=== PATIENT | female | born 1950 | race Caucasian/White ===

== ENCOUNTER 2018-03-11 10:33 | Day surgery (SDC) | payer BC, OTHER ==
[2018-03-11 11:04] VITALS: BMI 44.4
[2018-03-11] MEDS ORDERED: PROPOFOL 20 ML ONE ×3 (11:36)
[2018-03-11] MEDS ORDERED: LIDOCAINE HCL/PF 2% SDV 5ML VIAL ONE (11:37)
[2018-03-11 12:44] VITALS: BP 123/70; PULSE 72; TEMP 98.2
--- NOTE | 2018-03-13 19:50 | PATH ---
Surgical Pathology Report Patient Name: STONE AMOR [facility]. Rec. #: [id number] /Age/Gender: 1950 (Age: 67) / F Account: [id number] Location: [facility] Taken: 03/11/2018 Received: 03/11/2018 Reported: 03/13/2018 Physicians: Kristan Lee M.D. Specimen(s) Received A: BX DUODENUM B: BX ANTRUM C: BX BODY D: BX GE JUNCTION Clinical History Vomiting Postoperative diagnosis: Surgical anatomy, gastritis Final Diagnosis A. DUODENUM, BIOPSY: SMALL BOWEL MUCOSA WITHOUT SIGNIFICANT PATHOLOGIC FINDINGS. B. STOMACH, ANTRUM, BIOPSY: GASTRIC ANTRAL MUCOSA WITH MILD CHRONIC GASTRITIS. IMMUNOHISTOCHEMICAL STAIN FOR H. PYLORI IS NEGATIVE. C. GASTRIC BODY, BIOPSY: GASTRIC BODY MUCOSA WITH MILD CHRONIC GASTRITIS. IMMUNOHISTOCHEMICAL STAIN FOR H. PYLORI IS NEGATIVE. D. GE JUNCTION, BIOPSY: SQUAMOCOLUMNAR MUCOSA WITH MILD CHRONIC INFLAMMATION AND CHANGES OF MODERATE REFLUX ESOPHAGITIS. NO INTESTINAL METAPLASIA OR DYSPLASIA IDENTIFIED. Electronically Signed Kristan Keating M.D. Gross Description A. Received in formalin, labeled "biopsy duodenum" are 2 gates, irregular portions of soft tissue measuring 0.3 and 0.5 cm. in greatest dimension. The specimens are submitted in toto in one cassette. B. Received in formalin, labeled "biopsy antrum" is a gates, irregular portion of soft tissue measuring 0.4 cm. in greatest dimension. The specimen is submitted in toto in one cassette. C. Received in formalin, labeled "biopsy gastric body" is a gates, irregular portion of soft tissue measuring 0.5 cm. in greatest dimension. The specimen is submitted in toto in one cassette. D. Received in formalin, labeled "biopsy GE junction" is a gates, irregular portion of soft tissue measuring 0.3 cm. in greatest dimension. The specimen is submitted in toto in one cassette. 03/12/201803/12/2018
== END 2018-03-11 12:44 | disposition home or self-care (01) ==
LOC: FASU-ENDO 10:33
PROVIDERS: ATTEND Internal Medicine Gastroenterology
PROC: 0DB68ZX Excision of Stomach, Via Natural or Artificial Opening Endoscopic, Diagnostic (ICD-10-PCS; 2018-03-11)
PROC: 0DB38ZX Excision of Lower Esophagus, Via Natural or Artificial Opening Endoscopic, Diagnostic (ICD-10-PCS; 2018-03-11)
PROC: 0DB98ZX Excision of Duodenum, Via Natural or Artificial Opening Endoscopic, Diagnostic (ICD-10-PCS; principal; 2018-03-11 11:00)
DX: K29.50 Unspecified chronic gastritis without bleeding (principal); K21.0 Gastro-esophageal reflux disease with esophagitis; E03.9 Hypothyroidism, unspecified; E11.9 Type 2 diabetes mellitus without complications; E78.00 Pure hypercholesterolemia, unspecified; Z98.84 Bariatric surgery status
CPT/HCPCS: 82962; 88305-TC; 88342-TC

== ENCOUNTER 2018-06-03 09:50 | Day surgery (SDC) | payer BC ==
[2018-05-27 10:14] VITALS: BMI 44.4
[2018-06-03 10:30] VITALS: BP 132/92; PULSE 94; TEMP 98.3
[2018-06-03] MEDS ORDERED: PROPOFOL 20 ML ONE ×2 (10:47)
== END 2018-06-03 11:20 | disposition home or self-care (01) ==
LOC: FASU-ENDO 09:50
PROVIDERS: ATTEND Internal Medicine Gastroenterology
PROC: 0DJD8ZZ Inspection of Lower Intestinal Tract, Via Natural or Artificial Opening Endoscopic (ICD-10-PCS; principal; 2018-06-03 11:07)
DX: Z12.11 Encounter for screening for malignant neoplasm of colon (principal); K64.0 First degree hemorrhoids
CPT/HCPCS: 82962

== ENCOUNTER 2018-07-29 09:14 | Day surgery (SDC) | payer BC, OTHER ==
[2018-07-27 15:00] VITALS: BMI 37.9
[2018-07-29 12:01] VITALS: PULSE 81
[2018-07-29 12:31] VITALS: BP 110/62; TEMP 98
--- NOTE | 2018-08-04 13:05 | PATH ---
Surgical Pathology Report Patient Name: STONE AMOR [facility]. Rec. #: [id number] /Age/Gender: 1950 (Age: 67) / F Account: [id number] Location: [facility] Taken: 07/29/2018 Received: 07/29/2018 Reported: 07/31/2018 Physicians: Kristan Lee M.D. Specimen(s) Received A: RANDOM BX ASCENDING COLON B: RANDOM BX TRANSVERSE COLON C: RANDOM BX DESCENDING COLON Clinical History Screening/poor prep Hemorrhoids Final Diagnosis A. RANDOM ASCENDING COLON BIOPSY: COLONIC MUCOSA WITH ACUTE INFLAMMATION, ACUTE CRYPTITIS, INCREASED CHRONIC INFLAMMATORY INFILTRATE, AND REACTIVE LYMPHOID AGGREGATE IN THE LAMINA PROPRIA. B. RANDOM TRANSVERSE COLON BIOPSY: COLONIC MUCOSA WITH ACUTE INFLAMMATION, ACUTE CRYPTITIS, AND INCREASED CHRONIC INFLAMMATORY INFILTRATE IN THE LAMINA PROPRIA. C. RANDOM DESCENDING COLON BIOPSY: COLONIC MUCOSA WITH ACUTE INFLAMMATION, ACUTE CRYPTITIS, CRYTP ABSCESS, AND INCREASED CHRONIC INFLAMMATORY INFILTRATE IN THE LAMINA PROPRIA. Comment: No granulomatous inflammation present. No crypt architectural distortion identified. The differential diagnoses include acute self limited colitis, infectious colitis, and inflammatory bowel disease. Clinical correlation is recommended. Electronically Signed Dhaval Reynolds M.D. Gross Description A. Received in formalin, labeled "random biopsy, ascending colon" as one piece of light gates, tissue measuring 0.3 cm in greatest dimension. Entirely submitted in one cassette. B. received in formalin, labeled, "random biopsy, transverse colon" is one piece of light gates, tissue, measuring 0.3 cm in greatest dimension. Entirely submitted in one cassette. C. received in formalin, labeled "random biopsy descending colon" is one piece of light gates, tissue, measuring 0.4 cm in greatest dimension. Entirely submitted in one cassette. AE/07/29/2018 ebram/07/29/2018
== END 2018-07-29 12:32 | disposition home or self-care (01) ==
LOC: FASU-ENDO 09:14
PROVIDERS: ATTEND Internal Medicine Gastroenterology
PROC: 0DBL8ZX Excision of Transverse Colon, Via Natural or Artificial Opening Endoscopic, Diagnostic (ICD-10-PCS; 2018-07-29)
PROC: 0DBM8ZX Excision of Descending Colon, Via Natural or Artificial Opening Endoscopic, Diagnostic (ICD-10-PCS; 2018-07-29)
PROC: 0DBK8ZX Excision of Ascending Colon, Via Natural or Artificial Opening Endoscopic, Diagnostic (ICD-10-PCS; principal; 2018-07-29 11:15)
DX: Z12.11 Encounter for screening for malignant neoplasm of colon (principal); K62.89 Other specified diseases of anus and rectum; R10.9 Unspecified abdominal pain; K64.8 Other hemorrhoids
CPT/HCPCS: 82962; 88305-TC

== ENCOUNTER 2020-12-13 21:25 | Emergency (ER) | payer BC ==
[2020-12-13 22:00] VITALS: BP 107/70; PULSE 87; TEMP 97.7; BMI 38.9
[2020-12-13] MEDS ORDERED: SODIUM CHLORIDE 0.9% 500 ML INFUS.BAG IV ONE (22:31)
[2020-12-13] MEDS ORDERED: METOCLOPRAMIDE HCL INJECTION 10 MG/2 ML VIAL IVPB ONE (22:31)
[2020-12-13] MEDS ORDERED: ACETAMINOPHEN 1000 MG/100 ML VIAL (NON FORMULARY) IVPB ONE (22:31)
[2020-12-13] MEDS ORDERED: METOCLOPRAMIDE HCL INJECTION 10 MG/2 ML VIAL ONE (22:40)
[2020-12-13] MEDS ORDERED: ACETAMINOPHEN INJECTION 100 ML IVPB ONE (22:41)
[2020-12-13 23:14] LABS: BASO % 1.3 % (0-2.0); EOS % 3.3 % (0-4.5); HEMATOCRIT 34.7 % (32.4-45.2); HEMOGLOBIN 11.6 GM/dL (10.7-15.3); LYMPH % 27.3 % (8-40); MCH 28.3 pg (25.7-33.7); MCHC 33.3 g/dl (32.0-36.0); MEAN CELL VOLUME 84.9 fl (80-96); MEAN PLT VOLUME 9.2 fl (7.5-11.1); MONO % 10.3 % (3.8-10.2); NEUT % 57.8 % (42.8-82.8); PLATELET COUNT 238 10^3/uL (134-434); RBC 4.09 M/mm3 (3.60-5.2); RDW 15.9 % (11.6-15.6); WHITE BLOOD COUNT 5.5 K/mm3 (4.0-10.0)
[2020-12-13 23:20] LABS: INR 1.06 (0.83-1.09); PROTHROMBIN TIME (PATIENT) 13.1 SEC (9.7-13.0)
[2020-12-13 23:23] LABS: ACTIVATED PTT 29.6 SECONDS (25.2-36.5)
[2020-12-13 23:32] LABS: CHLORIDE 108 mmol/L (98-107); SODIUM 139 mmol/L (136-145)
[2020-12-13 23:34] LABS: CALCIUM 8.8 mg/dL (8.5-10.1)
[2020-12-13 23:35] LABS: ALBUMIN 3.2 g/dl (3.4-5.0); ANION GAP 4 MMOL/L (8-16); BLOOD UREA NITROGEN 11.1 mg/dL (7-18); CO2 28 mmol/L (21-32); GLUCOSE,RANDOM 122 mg/dL (74-106); LIPASE 40 U/L (73-393); MAGNESIUM 2.4 mg/dL (1.8-2.4)
[2020-12-13 23:37] LABS: SGPT/ALT 31 U/L (13-61)
[2020-12-13 23:38] LABS: CREATININE 0.8 mg/dL (0.55-1.3); SGOT/AST 33 U/L (15-37)
[2020-12-13 23:39] LABS: BILIRUBIN,TOTAL 0.5 mg/dL (0.2-1); TOT PROT 6.7 g/dl (6.4-8.2)
[2020-12-13 23:40] LABS: ALK PHOS 95 U/L (45-117)
[2020-12-14] MEDS ORDERED: MAGNESIUM CITRATE 300 ML BOTTLE PO ONE (01:10)
[2020-12-14] MEDS ORDERED: MINERAL OIL ENEMA 133 ML ENEMA PR ONE (01:12)
[2020-12-14 01:54] LABS: PH,URINE 5.5 (5.0-8.0); URINE APPEARANCE CLEAR; URINE BILIRUBIN NEGATIVE (NEGATIVE); URINE COLOR ORANGE; URINE GLUCOSE (UA) NEGATIVE (NEGATIVE); URINE KETONE NEGATIVE (NEGATIVE); URINE LEUK ESTERASE NEGATIVE (NEGATIVE); URINE NITRITE NEGATIVE (NEGATIVE); URINE PROTEIN NEGATIVE (NEGATIVE); URINE UROBILINOGEN 0.2 mg/dL (0.2-1.0)
[2020-12-14] MEDS ORDERED: KETOROLAC TROMETHAMINE 30 MG/1 ML VIAL ONE (02:59)
[2020-12-14] MEDS ORDERED: KETOROLAC TROMETHAMINE 30 MG/1 ML VIAL IM ONE (02:59)
== END 2020-12-14 04:06 | disposition home or self-care (01) ==
LOC: JER 21:25
PROC: 3E0333Z Introduction of Anti-inflammatory into Peripheral Vein, Percutaneous Approach (ICD-10-PCS; principal; 2020-12-13)
PROC: 3E0233Z Introduction of Anti-inflammatory into Muscle, Percutaneous Approach (ICD-10-PCS; 2020-12-13)
PROC: 3E033GC Introduction of Other Therapeutic Substance into Peripheral Vein, Percutaneous Approach (ICD-10-PCS; 2020-12-13)
DX: K59.00 Constipation, unspecified (principal)
CPT/HCPCS: 36415; 71045-TC-FY; 74177-TC; 80053; 81003; 82550; 83605; 83690; 83735; 84439; 84443; 84481; 84484; 85025; 85610; 85730; 87086; 93005; 93010; 99285-25; J0131

== ENCOUNTER 2020-12-23 03:41 | Emergency (ER) | payer BC ==
[2020-12-23 04:04] VITALS: BP 115/57; PULSE 77; TEMP 98.7; BMI 35.4
[2020-12-23] MEDS ORDERED: ONDANSETRON 4 MG TABLET PO ONE (04:21)
[2020-12-23] MEDS ORDERED: ONDANSETRON *ODT* 4 MG TABLET ONE (04:24)
== END 2020-12-23 05:10 | disposition home or self-care (01) ==
LOC: JER 03:41
DX: B02.9 Zoster without complications (principal)
CPT/HCPCS: 99283-25

== ENCOUNTER 2021-06-10 12:06 | Emergency (ER) | payer BC ==
[2021-06-10 12:16] VITALS: TEMP 98; BMI 38.0
[2021-06-10] MEDS ORDERED: FAMOTIDINE 20 MG/50 ML IVPB 20 MG/50 ML MG IVPB ONE ×2 (13:00→13:12)
[2021-06-10] MEDS ORDERED: SODIUM CHLORIDE 500 ML IV STA (13:00)
[2021-06-10 13:36] LABS: BASO % 0.9 % (0-2.0); EOS % 2.3 % (0-4.5); HEMATOCRIT 36.6 % (32.4-45.2); LYMPH % 19.5 % (8-40); MCH 27.9 pg (25.7-33.7); MCHC 32.7 g/dl (32.0-36.0); MEAN CELL VOLUME 85.2 fl (80-96); MEAN PLT VOLUME 8.1 fl (7.5-11.1); MONO % 7.4 % (3.8-10.2); NEUT % 69.9 % (42.8-82.8); PLATELET COUNT 304 10^3/uL (134-434); RBC 4.29 M/mm3 (3.60-5.2); RDW 17.8 % (11.6-15.6); WHITE BLOOD COUNT 6.6 K/mm3 (4.0-10.0)
[2021-06-10 13:58] LABS: CALCIUM 10.2 mg/dL (8.5-10.1)
[2021-06-10 13:59] LABS: BLOOD UREA NITROGEN 16.1 mg/dL (7-18)
[2021-06-10 14:04] LABS: BILIRUBIN,TOTAL 0.2 mg/dL (0.2-1); TOT PROT 7.6 g/dl (6.4-8.2)
[2021-06-10] MEDS ORDERED: SODIUM CHLORIDE 0.9% 500 ML INFUS.BAG IV ONE (14:25)
[2021-06-10] MEDS ORDERED: POLYETHYLENE GLYCOL (HEALTHYLAX) 3350 17 GM PACKET PO ONE (16:10)
[2021-06-10] MEDS ORDERED: POLYETHYLENE GLYCOL (HEALTHYLAX) 3350 17 GM PACKET ONE (16:16)
[2021-06-10 16:39] LABS: PH,URINE 8.5 (5.0-8.0); URINE APPEARANCE CLEAR; URINE BILIRUBIN NEGATIVE (NEGATIVE); URINE COLOR YELLOW; URINE GLUCOSE (UA) NEGATIVE (NEGATIVE); URINE KETONE NEGATIVE (NEGATIVE); URINE LEUK ESTERASE NEGATIVE (NEGATIVE); URINE NITRITE NEGATIVE (NEGATIVE); URINE PROTEIN NEGATIVE (NEGATIVE); URINE UROBILINOGEN 0.2 mg/dL (0.2-1.0)
[2021-06-10 17:35] LABS: LACTIC ACID 2.3 mmol/L (0.4-2.0)
[2021-06-10] MEDS ORDERED: SODIUM CHLORIDE 1,000 ML IV STA (17:57)
[2021-06-10 20:21] VITALS: BP 122/64; PULSE 94
== END 2021-06-10 20:22 | disposition home or self-care (01) ==
LOC: JER 12:06
PROC: 3E033GC Introduction of Other Therapeutic Substance into Peripheral Vein, Percutaneous Approach (ICD-10-PCS; principal; 2021-06-10)
PROC: 3E0337Z Introduction of Electrolytic and Water Balance Substance into Peripheral Vein, Percutaneous Approach (ICD-10-PCS; 2021-06-10)
PROC: 3E0337Z Introduction of Electrolytic and Water Balance Substance into Peripheral Vein, Percutaneous Approach (ICD-10-PCS; 2021-06-10)
PROC: 3E0337Z Introduction of Electrolytic and Water Balance Substance into Peripheral Vein, Percutaneous Approach (ICD-10-PCS; 2021-06-10)
DX: K27.9 Peptic ulcer, site unspecified, unspecified as acute or chronic, without hemorrhage or perforation (principal); K29.50 Unspecified chronic gastritis without bleeding
CPT/HCPCS: 36415; 74177-TC; 80053; 81003; 82962; 83605; 83690; 84439; 84443; 84481; 85025; 87086; 99285-25; Q9967

== ENCOUNTER 2021-08-29 11:12 | Day surgery (SDC) | payer BC ==
[2021-08-29 11:36] VITALS: BMI 38.9
[2021-08-29 12:59] VITALS: TEMP 97.4
[2021-08-29 13:12] VITALS: BP 108/64; PULSE 83
== END 2021-08-29 13:15 | disposition home or self-care (01) ==
LOC: FASU-ENDO 11:12
PROVIDERS: ATTEND Internal Medicine Gastroenterology
PROC: 0DB68ZX Excision of Stomach, Via Natural or Artificial Opening Endoscopic, Diagnostic (ICD-10-PCS; 2021-08-29)
PROC: 0DB48ZX Excision of Esophagogastric Junction, Via Natural or Artificial Opening Endoscopic, Diagnostic (ICD-10-PCS; 2021-08-29)
PROC: 0DB98ZX Excision of Duodenum, Via Natural or Artificial Opening Endoscopic, Diagnostic (ICD-10-PCS; principal; 2021-08-29 12:14)
DX: K29.50 Unspecified chronic gastritis without bleeding (principal); K21.00 Gastro-esophageal reflux disease with esophagitis, without bleeding; R12 Heartburn
CPT/HCPCS: 82962

== ENCOUNTER 2023-03-30 15:06 | Emergency (ER) | payer BC, OTHER ==
[2023-03-30 15:19] VITALS: BP 129/66; PULSE 87; RESP 18; TEMP 97.6; BMI 38.0
[2023-03-30] MEDS ORDERED: TETANUS AND DIPHTHERIA TOXOID 0.5 ML DISP.SYRIN IM ONE (16:08)
[2023-03-30] MEDS ORDERED: CEPHALEXIN 250 MG/5 ML ORAL SUSPENSION PO ONE (16:08)
[2023-03-30] MEDS ORDERED: DIPHTH,PERTUSS(ACELL),TET 0.5 ML DISP.SYRIN IM ONE (16:13)
[2023-03-30] MEDS ORDERED: CEPHALEXIN MONOHYDRATE 500 MG CAPSULE (UD) ONE (16:13)
== END 2023-03-30 16:32 | disposition home or self-care (01) ==
LOC: JERFT 15:06
PROC: 0HQGXZZ Repair Left Hand Skin, External Approach (ICD-10-PCS; principal; 2023-03-30)
PROC: 3E0234Z Introduction of Serum, Toxoid and Vaccine into Muscle, Percutaneous Approach (ICD-10-PCS; 2023-03-30)
DX: S61.211A Laceration without foreign body of left index finger without damage to nail, initial encounter (principal); W26.8XXA Contact with other sharp object(s), not elsewhere classified, initial encounter
CPT/HCPCS: 99283-25

== ENCOUNTER 2023-07-03 11:46 | Emergency (ER) | payer OTHER ==
[2023-07-03 11:53] VITALS: BP 144/59; PULSE 81; RESP 18; TEMP 97.5; BMI 35.4
== END 2023-07-03 13:31 | disposition home or self-care (01) ==
LOC: JERFT 11:46
DX: J40 Bronchitis, not specified as acute or chronic (principal); R05.9 Cough, unspecified; R09.81 Nasal congestion; R11.10 Vomiting, unspecified; M79.10 Myalgia, unspecified site; R68.83 Chills (without fever); Z20.822 Contact with and (suspected) exposure to COVID-19
CPT/HCPCS: 0241U-QW; 71046-TC-FY; 93005; 93010; 99285-25

== ENCOUNTER 2024-01-06 16:10 | Emergency (ER) | payer OTHER ==
[2024-01-06 16:28] VITALS: BP 142/88; PULSE 75; RESP 16; TEMP 97.6; BMI 35.0
[2024-01-06] MEDS ORDERED: ACETAMINOPHEN 325 MG TABLET (FP) ONE (17:36)
[2024-01-06] MEDS ORDERED: DIPHTH,PERTUSS(ACELL),TET 0.5 ML DISP.SYRIN IM ONE (17:42)
[2024-01-06] MEDS: ACETAMINOPHEN 325 MG TABLET (FP) PO ONE (17:42)
[2024-01-06] MEDS: DIPHTH,PERTUSS(ACELL),TET 0.5 ML DISP.SYRIN IM ONE (17:50)
[2024-01-06] MEDS ORDERED: METHOCARBAMOL 500 MG TABLET PO ONE (18:25)
[2024-01-06] MEDS ORDERED: BACITRACIN ZINC 15 GM TUBE TOPICAL OINTMENT ONE (18:32)
[2024-01-06] MEDS ORDERED: METHOCARBAMOL 500 MG TABLET ONE (18:35)
== END 2024-01-06 18:43 | disposition home or self-care (01) ==
LOC: JERFT 16:10
PROC: 3E0133Z Introduction of Anti-inflammatory into Subcutaneous Tissue, Percutaneous Approach (ICD-10-PCS; principal; 2024-01-06)
DX: S50.312A Abrasion of left elbow, initial encounter (principal); S60.812A Abrasion of left wrist, initial encounter; M54.2 Cervicalgia; M25.512 Pain in left shoulder; W01.0XXA Fall on same level from slipping, tripping and stumbling without subsequent striking against object, initial encounter; Z23 Encounter for immunization
CPT/HCPCS: 72125-TC; 73030-TC-LT-FY; 73060-TC-LT-FY; 73070-TC-LT-FY; 90471; 90715; 99284-25

== ENCOUNTER 2024-10-23 10:49 | Emergency (ER) | payer OTHER ==
[2024-10-23 11:41] VITALS: BP 133/77; PULSE 89; RESP 20; TEMP 97.8; BMI 32.9
== END 2024-10-23 13:33 | disposition home or self-care (01) ==
LOC: JERFT 10:49
DX: S61.111A Laceration without foreign body of right thumb with damage to nail, initial encounter (principal); W26.0XXA Contact with knife, initial encounter; Y93.G3 Activity, cooking and baking
CPT/HCPCS: 99283-25

== ENCOUNTER 2024-12-07 03:52 | Emergency (ER) | payer OTHER ==
[2024-12-07 03:59] VITALS: TEMP 98.4; BMI 35.6
[2024-12-07 04:31] LABS: ABSOLUTE IMMATURE GRANULOCYTES 0.31 x10^3/uL (0.0-0.031); BASOPHILS # 0.02 x10^3/uL (0.01-0.08); EOSINOPHIL % 0.1 % (0.7-5.8); EOSINOPHILS # 0.01 x10^3/uL (0.04-0.36); MCHC 31.9 g/dl (32.2-35.5); MEAN CELL VOLUME 93.5 fl (79.4-94.8); MEAN PLT VOLUME 10.0 fl (9.4-12.3); MONOCYTE # 0.59 x10^3/uL (0.24-0.86); MONOCYTE % 5.9 % (4.7-12.5); RDW 14.0 % (12.4-16.6)
[2024-12-07 04:32] LABS: BG HCT 37.0 % (32.4-45.2); VENOUS BASE EXCESS -0.6 mmol/L (-2-2); VENOUS O2 SATURATION 63.5 % (70-80); VENOUS PCO2 39.5 mmHg (38-52); VENOUS PH 7.402 (7.310-7.410)
[2024-12-07 04:38] LABS: INR 0.98 (0.83-1.09); PROTHROMBIN TIME (PATIENT) 10.8 SEC (9.7-13.0)
[2024-12-07 04:41] LABS: ACTIVATED PTT 22.6 SECONDS (25.2-36.5)
[2024-12-07 04:49] LABS: GLUCOSE,RANDOM 519 mg/dL (74-106)
[2024-12-07 04:50] LABS: CO2 25 mmol/L (21-32); TOT PROT 5.9 g/dl (6.4-8.2)
[2024-12-07 04:52] LABS: ALK PHOS 133 U/L (40-150)
[2024-12-07 04:55] LABS: CREATININE 0.64 mg/dL (0.55-1.3); SGOT/AST 14 U/L (5-34); SGPT/ALT 32 U/L (0-55)
[2024-12-07 05:15] LABS: HCV DIAGNOSTIC IN-HOUSE W/RFLX NON-REACTIVE (NONREACTIVE)
[2024-12-07 05:16] LABS: HIV INTERPRETATION NEGATIVE (NEGATIVE)
[2024-12-07] MEDS: LACTATED RINGERS SOLUTION 1000 ML INFUS.BAG IV ONE ×2 (05:32→07:50)
[2024-12-07] MEDS ORDERED: ACETAMINOPHEN INJECTION 100 ML ONE (05:35)
[2024-12-07] MEDS: ACETAMINOPHEN 1000 MG/100 ML BAG IVPB ONE (05:45)
[2024-12-07 06:44] VITALS: RESP 20
[2024-12-07] MEDS ORDERED: KETOROLAC TROMETHAMINE 15 MG/ML VIAL ONE (08:28)
[2024-12-07 08:30] LABS: URINE APPEARANCE CLEAR; URINE BILIRUBIN NEGATIVE (NEGATIVE); URINE COLOR YELLOW; URINE GLUCOSE (UA) 3+ (NEGATIVE); URINE KETONE NEGATIVE (NEGATIVE); URINE LEUK ESTERASE NEGATIVE (NEGATIVE); URINE NITRITE NEGATIVE (NEGATIVE); URINE PROTEIN NEGATIVE (NEGATIVE); URINE UROBILINOGEN 0.2 mg/dL (0.2-1.0)
[2024-12-07] MEDS: KETOROLAC TROMETHAMINE 15 MG/ML VIAL IVPUSH ONE (08:37)
[2024-12-07 08:47] LABS: EPI CELLS 6 /uL (0-25.1); HYALINE CASTS 0 /uL (0-3.1); URINE BACTERIA 4 /uL (0-1359); URINE RBC 7 /uL (0-23.9); URINE WBC 2 /uL (0-25.8)
[2024-12-07 09:38] VITALS: BP 128/67; PULSE 78
== END 2024-12-07 10:15 | disposition home or self-care (01) ==
LOC: JER 03:52
PROC: 3E033NZ Introduction of Analgesics, Hypnotics, Sedatives into Peripheral Vein, Percutaneous Approach (ICD-10-PCS; principal; 2024-12-07)
PROC: 3E033GC Introduction of Other Therapeutic Substance into Peripheral Vein, Percutaneous Approach (ICD-10-PCS; 2024-12-07)
DX: R55 Syncope and collapse (principal); E11.65 Type 2 diabetes mellitus with hyperglycemia; S00.03XA Contusion of scalp, initial encounter; M54.2 Cervicalgia; W01.198A Fall on same level from slipping, tripping and stumbling with subsequent striking against other object, initial encounter; Y92.000 Kitchen of unspecified non-institutional (private) residence as the place of occurrence of the external cause; Y93.01 Activity, walking, marching and hiking
CPT/HCPCS: 36415; 70450-TC; 71045-TC-FY; 72125-TC; 80053; 81003; 82803; 82962; 84484; 85025; 85610; 85730; 86803; 86850; 86870; 86880; 86900; 86901; 86902; 87389; 93005; 93010; 96374; 96375; 99285-25